=== PATIENT | male | born 1975 | race Caucasian/White ===

== ENCOUNTER 2020-12-21 10:29 | Emergency (ER) | payer OTHER ==
[~2020-12-21 10:29] MED LIST: AMOX-426 PO
[2020-12-21 10:59] LABS: BASOPHILS % (AUTO) 0.5 % (0.0-5.0); EOSINOPHILS % (AUTO) 0.4 % (0.0-8.0); HEMATOCRIT 43.4 % (42-54); LYMPHOCYTES % (AUTO) 9.7 % (21.0-51.0); MEAN CORPUSCULAR HEMOGLOBIN 32.4 pg (27.0-33.0); MEAN CORPUSCULAR HGB CONC 35.7 g/dL (32.0-36.0); MEAN CORPUSCULAR VOLUME 90.8 fL (79-99); MONOCYTES % (AUTO) 7.5 % (3.0-13.0); NEUTROPHILS % (AUTO) 81.5 % (40.0-77.0); PLATELET COUNT (AUTO) 209 K/uL (130-400); RED BLOOD CELL COUNT(AUTO) 4.78 MIL/uL (4.50-6.20); RED CELL DISTRIBUTION WIDTH 11.4 % (11.0-15.5); WHITE BLOOD COUNT (AUTO) 11.2 K/uL (4.8-10.8)
[2020-12-21 11:08] LABS: CREATININE 0.9 mg/dL (0.5-1.5); POTASSIUM 4.1 mmol/L (3.5-5.1)
[2020-12-21 11:13] LABS: APPEARANCE,URINE Clear (CLEAR); BILIRUBIN,URINE Negative (NEGATIVE); COLOR,URINE Yellow (YELLOW); GLUCOSE, URINE (UA) Negative (NEGATIVE); KETONES,URINE Negative (NEGATIVE); LEUKOCYTE ESTERASE ,URINE Trace (NEGATIVE); NITRATE,URINE Negative (NEGATIVE); OCCULT BLOOD,URINE Negative (NEGATIVE); PH,URINE 6.5 (5.0-8.0); PROTEIN,URINE Negative (NEGATIVE); UROBILINOGEN,URINE 0.2 mg/dL (0.2-1.0)
[2020-12-21 11:14] LABS: ALBUMIN 4.3 g/dL (3.5-5.0); BILIRUBIN,TOTAL 0.7 mg/dL (0.2-1.0); TOTAL PROTEIN, SERUM 7.9 g/dL (6.0-8.3)
[2020-12-21] MEDS ORDERED: ONDANSETRON HCL 4 MG/2 ML VIAL ONE (11:37)
[2020-12-21] MEDS ORDERED: MORPHINE SULFATE 4 MG/1ML SYG ONE (11:37)
[2020-12-21] MEDS ORDERED: SODIUM CHLORIDE 0.9% 1000ML 1,000 ML IV ONE (11:37)
[2020-12-21 11:45] LABS: BACTERIA,URINE Rare /HPF (None Seen); RBC,URINE None Seen /HPF (0-1); WBC,URINE 0-1 /HPF (0-1)
[2020-12-21 11:46] LABS: SQUAMOUS EPITHELIAL CELL,UR None Seen /HPF (0-2)
== END 2020-12-21 14:52 | disposition home or self-care (01) ==
LOC: EDH 10:29
DX: R10.32 Left lower quadrant pain (principal); R19.7 Diarrhea, unspecified; Z72.0 Tobacco use
CPT/HCPCS: 36415; 74176; 80053; 81001; 83690; 85025; 96365; 96366; 96375; 99284; J2270; J2405; J7030

== ENCOUNTER 2022-04-01 06:35 | Observation (INO) | payer OTHER ==
[2022-03-26 11:44] LABS: BASOPHILS % (AUTO) 0.8 % (0.0-5.0); EOSINOPHILS % (AUTO) 2.4 % (0.0-8.0); HEMATOCRIT 43.6 % (42-54); LYMPHOCYTES % (AUTO) 27.4 % (21.0-51.0); MEAN CORPUSCULAR HEMOGLOBIN 31.8 pg (27.0-33.0); MEAN CORPUSCULAR HGB CONC 34.9 g/dL (32.0-36.0); MEAN CORPUSCULAR VOLUME 91.2 fL (79-99); MONOCYTES % (AUTO) 9.9 % (3.0-13.0); NEUTROPHILS % (AUTO) 59.1 % (40.0-77.0); PLATELET COUNT (AUTO) 200 K/uL (130-400); RED BLOOD CELL COUNT(AUTO) 4.78 MIL/uL (4.50-6.20); RED CELL DISTRIBUTION WIDTH 11.6 % (11.0-15.5)
[2022-03-26 11:54] LABS: INR 0.93 (0.85-1.15); PROTHROMBIN TIME 9.8 SEC (9.6-11.6)
[2022-03-26 11:56] LABS: PARTIAL THROMBOPLASTIN TIME 27.8 SEC (26.3-35.5)
[2022-03-26 11:59] LABS: POTASSIUM 4.8 mmol/L (3.5-5.1)
[2022-03-28 09:54] VITALS: BP 140/92
[2022-04-01] VITALS (16 sets, daily range): BP systolic 112–141; BP diastolic 61–89
[~2022-04-01] VITALS: Ht 167.6 cm; Wt 77.7 kg
[~2022-04-01 06:35] MED LIST changes: -AMOX-426 PO; +LOSA50TA64 PO; +ROPIVICAINE 250MG+KETOROLAC 15MG+EPINEPHRINE 0.3+CLONIDINE 80 IV SCH
[2022-04-01] MEDS: ROPIVICAINE 250MG+KETOROLAC 15MG+EPINEPHRINE 0.3+CLONIDINE 80 IV SCH ×10 (08:00→16:40)
[2022-04-01] MEDS ORDERED: CEFAZOLIN SODIUM 1 GM VIAL IVP ONE (08:00)
[2022-04-01] MEDS ORDERED: CLINDAMYCIN IVPB 600MG/50ML 50 ML IV ONE (08:33)
[2022-04-01] MEDS: LACTATED RINGERS 1000ML 1,000 ML IV SCH ×3 (08:48→17:25)
[2022-04-01] MEDS ORDERED: TRANEXAMIC ACID 1000MG/10ML ONE (12:06)
[2022-04-01] MEDS ORDERED: LIDOCAINE PF 100MG/5ML (2%) SYRINGE 5ML ONE (13:34)
[2022-04-01] MEDS ORDERED: SUCCINYLCHOLINE CHLORIDE 20 MG/ML 10 ML VIAL ONE (13:34)
[2022-04-01] MEDS ORDERED: GLYCOPYRROLATE 1 MG/5 ML SYRINGE ONE (13:35)
[2022-04-01] MEDS ORDERED: NEOSTIGMINE 5MG/5ML SYR IV ONE (13:35)
[2022-04-01] MEDS ORDERED: DEXAMETHASONE SOD PHOSPHATE 10MG/ML 1ML VIAL ONE (13:35)
[2022-04-01] MEDS ORDERED: PROPOFOL 10 MG/ML 20ML VIAL IV ONE (13:35)
[2022-04-01] MEDS ORDERED: MIDAZOLAM HCL 1 MG/ML 2ML VIAL ONE (13:35)
[2022-04-01] MEDS ORDERED: ONDANSETRON 4MG INJ ONE (13:36)
[2022-04-01] MEDS ORDERED: ROCURONIUM 10MG/1ML SYR 10 MG/ML ML ONE ×2 (13:36→15:12)
[2022-04-01] MEDS ORDERED: FENTANYL CITRATE PF 50 MCG/1 ML 2ML VIAL ONE ×2 (13:36→16:11)
[2022-04-01] MEDS ORDERED: HYDROCODONE/ACETAMINOPHEN 5/325 MG TAB PO PRN (14:00)
[2022-04-01] MEDS ORDERED: MORPHINE 4 MG SYG IVP PRN (14:00)
[2022-04-01] MEDS ORDERED: ONDANSETRON 4MG INJ IVP PRN (14:00)
[2022-04-01] MEDS ORDERED: KETOROLAC 15MG/ML VIAL (15MG/ML) IV PRN (14:00)
[2022-04-01] MEDS ORDERED: 0.9%NACL 1000ML 1,000 ML IV SCH (14:00)
[2022-04-01] MEDS: ACETAMINOPHEN 500 MG TABLET PO SCH ×2 (14:00→20:17)
[2022-04-01] MEDS ORDERED: HYDROCODONE/ACETAMINOPHEN 10/325 MG TAB PO PRN (14:00)
[2022-04-01] MEDS ORDERED: ROPIVACAINE 0.5% 5MG/ML 30ML IJ ONE (15:55)
[2022-04-01] MEDS ORDERED: KETOROLAC 30MG VIAL (30MG/ML) ONE (16:13)
[2022-04-01] MEDS: CEFAZOLIN SODIUM 1 GM VIAL IVP SCH (20:17)
[2022-04-01] MEDS: FAMOTIDINE 20MG TAB PO SCH (20:17)
[2022-04-02] MEDS: TRAMADOL HCL 50 MG TABLET PO SCH ×3 (00:16→12:04)
[2022-04-02] MEDS: CEFAZOLIN SODIUM 1 GM VIAL IVP SCH (04:02)
[2022-04-02 04:22] LABS: HEMATOCRIT 39.2 % (42-54); MEAN CORPUSCULAR HEMOGLOBIN 31.9 pg (27.0-33.0); MEAN CORPUSCULAR HGB CONC 34.7 g/dL (32.0-36.0); MEAN CORPUSCULAR VOLUME 91.8 fL (79-99); RED BLOOD CELL COUNT(AUTO) 4.27 MIL/uL (4.50-6.20); RED CELL DISTRIBUTION WIDTH 11.5 % (11.0-15.5); WHITE BLOOD COUNT (AUTO) 13.9 K/uL (4.8-10.8)
[2022-04-02 04:34] LABS: CREATININE 1.1 mg/dL (0.5-1.5); POTASSIUM 4.3 mmol/L (3.5-5.1)
[2022-04-02 04:42] VITALS: BP 120/70
[2022-04-02] MEDS: ACETAMINOPHEN 500 MG TABLET PO SCH (05:23)
[2022-04-02 08:00] VITALS: BP 110/68
[2022-04-02] MEDS: FAMOTIDINE 20MG TAB PO SCH (08:17)
[2022-04-02] MEDS ORDERED: ENOXAPARIN SODIUM 30 MG/0.3 ML SQ SCH (09:00)
[2022-04-02] MEDS ORDERED: LOSARTAN 50 MG TABLET PO SCH (09:00)
[2022-04-02] MEDS ORDERED: POLYETHYLENE GLYCOL 3350 17 GM POWD.PACK PO SCH (09:00)
[2022-04-02 12:00] VITALS: BP 103/60
[2022-04-04] MEDS ORDERED: BISACODYL 10 MG SUPP.RECT RC PRN (14:00)
== END 2022-04-02 13:16 | disposition home or self-care (01) ==
LOC: DAH 06:35 → DAHIP 06:36 → OBSVTOIN 06:36 → INTOOBSV 06:36 → 4BH 18:57
PROVIDERS: ADMIT Orthopaedic Surgery; ATTEND Orthopaedic Surgery
DX: M16.11 Unilateral primary osteoarthritis, right hip (principal); Z20.822 Contact with and (suspected) exposure to COVID-19; M21.70 Unequal limb length (acquired), unspecified site; M24.551 Contracture, right hip; M21.751 Unequal limb length (acquired), right femur; I10 Essential (primary) hypertension; Z79.899 Other long term (current) drug therapy
CPT/HCPCS: 27130; 36415 ×2; 72170; 73503; 80048 ×2; 85025; 85027; 85610; 85730; 87635; 87641; 96372; 96374; 96376; 97039; 97116; 97161; A4215; A4221; A4222; A4223; A4344; A4606; A4649 ×3; A4663; A5120 ×2; A6219; A6255; A6260; C1776; C9803; G0168; G0378 ×3; J0171; J0330; J0690 ×2; J0735; J1100; J1650 ×2; J1885 ×2; J2001; J2250; J2405; J2704; J2710; J2795 ×2; J3010 ×2; J3490 ×3; J7030; J7120 ×2